=== PATIENT | male | born 1955 | race Caucasian/White ===

== ENCOUNTER 2021-08-27 06:52 | Emergency (ER) | payer OTHER ==
[~2021-08-27] VITALS: Ht 175.3 cm; Wt 101.6 kg
[2021-08-27] MEDS ORDERED: GLUMETZA1000 MG (07:26)
[2021-08-27] MEDS ORDERED: VASOTEC5 MG (07:26)
== END 2021-08-27 14:57 | disposition home or self-care (01) ==
LOC: ER 06:52
DX: M79.661 Pain in right lower leg (principal)